=== PATIENT | male | born 1960 | race Caucasian/White ===

== ENCOUNTER 2021-08-03 10:57 | Emergency (ER) | payer OTHER, SELFPAY ==
[2021-08-03 11:05] VITALS: BP 140/93; PULSE 95; RESP 16; TEMP 36.5; O2SAT 98
--- NOTE | 2021-08-03 11:23 | ED.URI ---
HPI - URI/Sore Throat General Chief Complaint: Upper Respiratory Infection Stated Complaint: sore throat sinus congestion Source: patient Mode of arrival: ambulatory History of Present Illness HPI Narrative: This is a 61-year-old male who presented to urgent care today with complaints of a dry cough, subjective fever, sneezing and head and chest congestion that occurred approximately 1 week ago according the patient he took Tylenol at home with no relief. The patient denies SOB, CP, palpitation, extremity numbness, lightheadedness, dizziness, constipation, diarrhea, chills, or fever. MD elicited complaint: cough Related Data Home Medications Medication Instructions Recorded Confirmed hydrochlorothiazide 12.5 mg PO DAILY 08/03/21 08/03/21 Allergies Allergy/AdvReac Type Severity Reaction Status Date / Time No Known Allergies Allergy Verified 08/03/21 11:18 Review of Systems Review of Systems: A 14 organ system Review of Systems was performed and pertinent positives included in the HPI, otherwise remaining ROS is negative. [facility] Family History Family History (Updated 08/03/21 @ 11:23 by CYNTHIA Segal-C) Other Family history non-contributory Exam Narrative: GENERAL: This is a well-nourished, well-developed patient, in no apparent distress. HEAD: normocephalic, atraumatic. EYES: PERRL. Sclera clear/white. Vision is grossly intact. EARS: External ears normal, auditory canals clear and without drainage, TMs normal without perforation. Hearing grossly intact. NOSE: External nose normal with no obvious nasal discharge, nares without redness, no rhinorrhea. THROAT: Mucous membranes moist, posterior pharynx clear. NECK: Neck supple, non-tender without lymphadenopathy, masses or thyromegaly. CARDIOVASCULAR: Regular rate and rhythm without murmurs, gallops, or rubs. RESPIRATORY: Clear to auscultation. Breath sounds equal bilaterally. No wheezes, rales, or rhonchi. GASTROINTESTINAL: Abdomen soft, non-tender, nondistended. Bowel sounds are active. No hepato-splenomegaly, or palpable masses. No guarding. SKIN: warm, intact with no suspicious lesions or rash, good texture and turgor. NEURO: awake, alert, and oriented to person, place and time. There were no obvious focal neurologic abnormalities. Steady gait EXTREMITIES: Normal range of motion. No edema. No calf tenderness. Negative Homans sign bilaterally. BACK: Nontender without deformity or crepitance. No flank tenderness. Course Course Emergency Course: Patient will discharge home with Flonase, Tessalon Perles and Claritin Vital Signs Vital signs: Vital Signs Temperature 97.7 F 08/03/21 11:05 Pulse Rate 95 08/03/21 11:05 Respiratory Rate 16 08/03/21 11:05 Blood Pressure 140/93 H 08/03/21 11:05 Pulse Oximetry 98 08/03/21 11:05 Temperature 97.7 F 08/03/21 11:05 Pulse Rate 95 08/03/21 11:05 Respiratory Rate 16 08/03/21 11:05 Blood Pressure 140/93 H 08/03/21 11:05 Pulse Oximetry 98 08/03/21 11:05 MDM - URI/Sore Throat Differential Diagnosis Differential diagnosis: Likely upper respiratory infection, sinusitis, viral infection and pharyngitis Lab Data Labs: Strep Screen Presumptive Negative *(Reference Range: Negative)* Discharge Plan Discharge Clinical Impression: Sinusitis Qualifiers: Sinusitis location: frontal Chronicity: acute Patient Disposition: Home, Self-Care Condition: Stable Instructions: Antibiotic Form, Sinusitis (ED) Additional Instructions: What are the symptoms of sinusitis? - Common symptoms of sinusitis include: ?Stuffy or blocked nose ?Thick yellow or green discharge from the nose ?Pain in the teeth ?Pain or pressure in the face - This often feels worse when a person bends forward. People with sinusitis can also have other symptoms that include: ?Fever ?Cough ?Trouble smelling ?Ear pressure or fullness ?Headache
== END 2021-08-03 11:37 | disposition home or self-care (01) ==
PROVIDERS: Emergency Provider Nurse Practitioner; PCP Internal Medicine
DX: J01.90 Acute sinusitis, unspecified (principal)
CPT/HCPCS: 87081; 87880; 99213; G0463